=== PATIENT | male | born 1995 ===

== ENCOUNTER 2023-08-17 13:39 | Inpatient (IN) | payer BC ==
[2023-08-17] MEDS: Sodium Chloride 0.9% 1,000 ML IV ONE ×2 (13:57→15:16)
[2023-08-17] MEDS: Ondansetron 4 MG/2 ML SDV IVPUSH ONE ×2 (13:57→15:53)
[2023-08-17] MEDS: Morphine 4 MG/ML Syringe IVPUSH ONE ×2 (13:57→17:40)
[2023-08-17] MEDS: Iopamidol 755 MG/ML 500 ML Multipack Bottle IVPUSH STA (14:14)
[2023-08-17] MEDS: Morphine 2 MG/ML SYRINGE IVPUSH ONE (15:13)
[2023-08-17] MEDS: Benzocaine 20% Topical Spray UD MUCMEM ONE (15:14)
[2023-08-17] MEDS: Metoclopramide 10 MG/2 ML SDV IVPUSH ONE (17:05)
[2023-08-17] MEDS: diphenhydrAMINE 50 MG/ML SDV IVPUSH ONE (17:05)
[2023-08-17 17:08] LABS: BASOPHILS ABSOLUTE AUTO 0.01 K/uL (0.00-0.20); BASOPHILS PERCENT AUTO 0.1 % (0.0-1.0); HEMATOCRIT 41.1 % (42.0-52.0); HEMOGLOBIN 14.7 g/dL (14.0-18.0); IMMATURE GRAN ABSOLUTE AUTO 0.03 K/uL (0.00-0.05); IMMATURE GRAN PERCENT AUTO 0.2 % (0.0-0.4); LYMPHOCYTES ABSOLUTE AUTO 0.65 K/uL (1.00-4.80); LYMPHOCYTES PERCENT AUTO 5.1 % (24.0-44.0); MEAN CORPUSCULAR HEMOGLOBIN 31.8 pg (28.0-32.0); MEAN CORPUSCULAR HGB CONC 35.8 g/dL (32.0-36.0); MEAN PLATELET VOLUME 9.7 fL (9.4-12.4); MONOCYTES ABSOLUTE AUTO 0.14 K/uL (0.00-0.80); MONOCYTES PERCENT AUTO 1.1 % (0.0-8.0); NEUTROPHILS ABSOLUTE AUTO 11.94 K/uL (1.80-7.70); NEUTROPHILS PERCENT AUTO 93.5 % (41.0-71.0); PLATELET COUNT,PLT 253 K/uL (150-400); RED BLOOD CELL COUNT 4.62 M/uL (4.52-5.90); WHITE BLOOD CELL COUNT,WBC 12.77 K/uL (3.9-11.3)
[2023-08-17] MEDS ORDERED: Ondansetron 4 MG/2 ML SDV IVPUSH PRN (20:34)
[2023-08-17] MEDS ORDERED: Naloxone 0.4 MG/ML SDV IVPUSH PRN (20:36)
[2023-08-17] MEDS: Sodium Chloride 0.9% 1,000 ML IV SCH (23:00)
[2023-08-18] MEDS: Morphine 2 MG/ML SYRINGE IVPUSH PRN (07:37)
[2023-08-18 08:33] LABS: CALCIUM 8.2 mg/dL (8.5-10.1); CARBON DIOXIDE,CO2 25.7 mmol/L (21.0-32.0); EST CRCL DRUG DOSING (CG) 99.66 mL/min; POTASSIUM,K 3.9 mmol/L (3.5-5.1)
[2023-08-18 08:59] LABS: HEMATOCRIT 39.8 % (42.0-52.0); HEMOGLOBIN 13.7 g/dL (14.0-18.0); MEAN CORPUSCULAR HEMOGLOBIN 31.4 pg (28.0-32.0); MEAN CORPUSCULAR HGB CONC 34.4 g/dL (32.0-36.0); MEAN CORPUSCULAR VOLUME 91.1 fL (83.0-99.0); MEAN PLATELET VOLUME 9.6 fL (9.4-12.4); PLATELET COUNT,PLT 229 K/uL (150-400); RED BLOOD CELL COUNT 4.37 M/uL (4.52-5.90); SEG NEUTROPHILS ABSOLUTE MAN 10.87 K/uL (1.80-7.70); SEG NEUTROPHILS PERCENT MAN 85 % (41-71); WHITE BLOOD CELL COUNT,WBC 12.79 K/uL (3.9-11.3)
[2023-08-18 09:00] LABS: LYMPHOCYTES ABSOLUTE MAN 1.28 K/uL (1.00-4.80); LYMPHOCYTES PERCENT MAN 10 % (24-44); MONOCYTES ABSOLUTE MAN 0.64 K/uL (0.00-0.80); MONOCYTES PERCENT MAN 5 % (0-8)
[2023-08-18] MEDS: Ketorolac 30 MG/ML SDV IVPUSH ONE ×2 (13:36→13:40)
[2023-08-18 20:33] LABS: APPEARANCE,URINE CLEAR; BILIRUBIN,URINE NEGATIVE (NEGATIVE); COLOR,URINE YELLOW; GLUCOSE,URINE NEGATIVE (NEGATIVE); KETONES,URINE >=80 mg/dL (NEGATIVE); LEUKOCYTE ESTERASE,URINE NEGATIVE (NEGATIVE); NITRITE,URINE NEGATIVE (NEGATIVE); OCCULT BLOOD,URINE NEGATIVE (NEGATIVE); PROTEIN,URINE NEGATIVE (NEGATIVE)
[2023-08-18 20:52] LABS: BACTERIA,URINE FEW (NEGATIVE); EPITHELIAL CELLS,URINE RARE (NONE-FEW); RBC,URINE 0-1 (0-2/HPF)
[2023-08-18 21:02] LABS: CORONAVIRUS COVID-19 NAA NEGATIVE (NEGATIVE); INFLUENZA A NAA NEGATIVE (NEGATIVE); INFLUENZA B NAA NEGATIVE (NEGATIVE); RESPIRATORY SYNCYTIAL VIR NAA NEGATIVE (NEGATIVE)
[2023-08-18] MEDS: Acetaminophen 650 MG in Premix Bag 1 BAG IV PRN (23:07)
[2023-08-18] MEDS: Azithromycin 500 MG in Sodium Chloride 0.9% 250 ML IV SCH (23:18)
[2023-08-18] MEDS: cefTRIAXone 1 GM in Sodium Chloride 0.9% 50 ML IV SCH (23:22)
[2023-08-19 06:04] LABS: HEMATOCRIT 38.8 % (42.0-52.0); HEMOGLOBIN 13.6 g/dL (14.0-18.0); MEAN CORPUSCULAR HEMOGLOBIN 31.7 pg (28.0-32.0); MEAN CORPUSCULAR HGB CONC 35.1 g/dL (32.0-36.0); MEAN CORPUSCULAR VOLUME 90.4 fL (83.0-99.0); MEAN PLATELET VOLUME 9.8 fL (9.4-12.4); PLATELET COUNT,PLT 211 K/uL (150-400); RED BLOOD CELL COUNT 4.29 M/uL (4.52-5.90); WHITE BLOOD CELL COUNT,WBC 9.69 K/uL (3.9-11.3)
[2023-08-19 06:22] LABS: CARBON DIOXIDE,CO2 23.9 mmol/L (21.0-32.0); CREATININE 0.9 mg/dL (0.8-1.3); EST CRCL DRUG DOSING (CG) 110.74 mL/min; POTASSIUM,K 4.2 mmol/L (3.5-5.1)
[2023-08-19 06:29] LABS: EOSINOPHILS ABSOLUTE MAN 0.97 K/uL (0.00-0.45); LYMPHOCYTES ABSOLUTE MAN 1.45 K/uL (1.00-4.80); LYMPHOCYTES PERCENT MAN 15 % (24-44); MONOCYTES ABSOLUTE MAN 0.97 K/uL (0.00-0.80); MONOCYTES PERCENT MAN 10 % (0-8); SEG NEUTROPHILS ABSOLUTE MAN 7.27 K/uL (1.80-7.70); SEG NEUTROPHILS PERCENT MAN 75 % (41-71)
[2023-08-19] MEDS ORDERED: Acetaminophen 325 MG Tab PO PRN (14:00)
[2023-08-19] MEDS: Phenol 1.4% Oral Spray 177 ML Bottle MUCMEM PRN (15:14)
[2023-08-20 05:56] LABS: BASOPHILS ABSOLUTE AUTO 0.01 K/uL (0.00-0.20); BASOPHILS PERCENT AUTO 0.2 % (0.0-1.0); EOSINOPHILS PERCENT AUTO 1.5 % (0.0-6.0); HEMATOCRIT 37.3 % (42.0-52.0); HEMOGLOBIN 13.1 g/dL (14.0-18.0); IMMATURE GRAN ABSOLUTE AUTO 0.02 K/uL (0.00-0.05); IMMATURE GRAN PERCENT AUTO 0.3 % (0.0-0.4); LYMPHOCYTES ABSOLUTE AUTO 1.52 K/uL (1.00-4.80); MEAN CORPUSCULAR HEMOGLOBIN 31.8 pg (28.0-32.0); MEAN CORPUSCULAR HGB CONC 35.1 g/dL (32.0-36.0); MEAN CORPUSCULAR VOLUME 90.5 fL (83.0-99.0); MEAN PLATELET VOLUME 10.1 fL (9.4-12.4); MONOCYTES PERCENT AUTO 7.6 % (0.0-8.0); NEUTROPHILS ABSOLUTE AUTO 4.47 K/uL (1.80-7.70); NEUTROPHILS PERCENT AUTO 67.4 % (41.0-71.0); PLATELET COUNT,PLT 197 K/uL (150-400); RED BLOOD CELL COUNT 4.12 M/uL (4.52-5.90); WHITE BLOOD CELL COUNT,WBC 6.62 K/uL (3.9-11.3)
[2023-08-20 06:11] LABS: CALCIUM 8.2 mg/dL (8.5-10.1); CARBON DIOXIDE,CO2 27.2 mmol/L (21.0-32.0); CREATININE 0.9 mg/dL (0.8-1.3); EST CRCL DRUG DOSING (CG) 110.74 mL/min; POTASSIUM,K 3.8 mmol/L (3.5-5.1)
== END 2023-08-20 13:02 | disposition home or self-care (01) | DRG 247 ==
LOC: MW.ED 13:39 → MW.MS 18:09 → OBSVTOIN 18:09 → MW.MS 08-18 12:54
PROVIDERS: ADMIT Internal Medicine; ATTEND Internal Medicine
PROC: 0D9670Z Drainage of Stomach with Drainage Device, Via Natural or Artificial Opening (ICD-10-PCS; principal; 2023-08-17)
DX: K56.600 Partial intestinal obstruction, unspecified as to cause (principal); J18.9 Pneumonia, unspecified organism; D72.829 Elevated white blood cell count, unspecified; Z90.49 Acquired absence of other specified parts of digestive tract; Z86.16 Personal history of COVID-19
CPT/HCPCS: 0241U; 36415; 71045; 71045-26; 74177; 74177-26; 74250; 74250-26; 80048; 81001; 82947; 83605; 85007; 85025; 85027; 96361; 96374; 96375; 96376; 99285; 99285-25; A9270-GY; J0131; J0456; J0696; J1200; J1885; J2270; J2405; J2765; J3490; J7030; J7050; Q9967